=== PATIENT | male | born 1935 | race Caucasian/White ===

== ENCOUNTER → 2017-02-12 | Outpatient (CLI) | payer MEDICARE | END | disposition home or self-care (01) | LOC: RAD 16:55 | PROVIDERS: ATTEND Family Medicine | DX: M71.22 Synovial cyst of popliteal space [Baker], left knee (principal); M79.662 Pain in left lower leg; M79.89 Other specified soft tissue disorders ==

== ENCOUNTER → 2018-08-30 | Outpatient (CLI) | payer MEDICARE ==
[~2018-08-30] MED LIST: ACET500T71 PO; ENAL20TA PO; HYDR12.53 PO; TADA5TAB2 PO
== END | disposition home or self-care (01) ==
LOC: STAR 14:27
PROVIDERS: ATTEND Urology
DX: Z01.818 Encounter for other preprocedural examination (principal); N40.1 Benign prostatic hyperplasia with lower urinary tract symptoms
CPT/HCPCS: 93005

== ENCOUNTER 2019-09-05 07:21 | Inpatient (IN) | payer MEDICARE ==
[~2019-09-05] VITALS: Ht 177.8 cm; Wt 105.6 kg
[~2019-09-05 07:21] MED LIST changes: +ACET-1600 PO; +ACET500T64 PO; -ACET500T71 PO; +HYDR12.517 PO; -HYDR12.53 PO; +MV-M1TAB16 PO
[2019-09-05] MEDS ORDERED: LACTATED RINGERS 1,000 ML IV SCH (08:04)
[2019-09-05] MEDS ORDERED: FENTANYL PF 100 MCG/2ML ONE ×3 (08:32→13:33)
[2019-09-05] MEDS ORDERED: ACETAMINOPHEN 500 MG TABLET ONE (09:42)
[2019-09-05] MEDS ORDERED: ACETAMINOPHEN 500 MG TABLET PO ONE (10:00)
[2019-09-05] MEDS ORDERED: ROPIvacaine/PF 0.2%, 100ML 500 ML in BAG 1 EACH INJ ONE (10:00)
[2019-09-05] MEDS ORDERED: HYDROmorphone 2 MG/ML, 1ML IVPush PRN ×2 (11:30→17:30)
[2019-09-05] MEDS ORDERED: hydrALAzine 20 MG/ML, 1ML IV PRN (11:30)
[2019-09-05] MEDS ORDERED: ONDANSETRON 2MG/ML, 2ML IV PRN ×2 (11:30→17:30)
[2019-09-05] MEDS ORDERED: ONDANSETRON ODT 8 MG PO PRN (11:30)
[2019-09-05] MEDS ORDERED: LABETALOL 5MG/ML, 20ML IV PRN (11:30)
[2019-09-05] MEDS ORDERED: PROMETHAZINE 25 MG/ML, 1ML IV PRN (11:30)
[2019-09-05] MEDS ORDERED: OXYcodone 5 MG/5 ML ORAL.SOL UDC PO PRN (11:30)
[2019-09-05] MEDS ORDERED: PROMETHAZINE 25 MG SUPP PR PRN (11:30)
[2019-09-05] MEDS ORDERED: TRANEXAMIC ACID 100 MG/ML, 10ML ONE (12:52)
[2019-09-05] MEDS ORDERED: GLYCOPYRROLATE 0.2MG/1ML, 5ML ONE (12:54)
[2019-09-05] MEDS ORDERED: NEOSTIGMINE 1 MG/ML, 10ML ONE (12:54)
[2019-09-05] MEDS ORDERED: PROPOFOL 10 MG/ML, 20ML ONE (12:54)
[2019-09-05] MEDS ORDERED: ONDANSETRON 2MG/ML, 2ML ONE (12:54)
[2019-09-05] MEDS ORDERED: ROCURONIUM 10MG/ML,5ML ONE (12:54)
[2019-09-05] MEDS ORDERED: ROPIvacaine/PF 0.5%, 30 ML ONE (12:54)
[2019-09-05] MEDS ORDERED: ROPIvacaine/PF 0.2%, 20 ML ONE (12:54)
[2019-09-05] MEDS ORDERED: DEXAMETHASONE 4 MG/ML, 1ML ONE (12:54)
[2019-09-05] MEDS ORDERED: CEFAZOLIN 1,000 MG ONE (12:54)
[2019-09-05] MEDS ORDERED: SUCCINYLCHOLINE 20 MG/ML, 10ML ONE (12:54)
[2019-09-05] MEDS ORDERED: SUGAMMADEX 200 MG/2 ML IVPush ONE (12:57)
[2019-09-05] MEDS ORDERED: OXYcodone 5 MG/5 ML ORAL.SOL UDC ONE (13:33)
[2019-09-05] MEDS: FENTANYL PF 100 MCG/2ML IV PRN ×4 (13:37→14:35)
[2019-09-05] MEDS ORDERED: HYDROcodone/APAP 5/325 TABLET PO PRN (17:30)
[2019-09-05] MEDS ORDERED: PROMETHAZINE 25 MG/ML, 1ML IM PRN (17:30)
[2019-09-05 17:55] LABS: ALBUMIN 3.3 g/dL (3.4-5.0); ANION GAP 4 mmol/L (5-15); CALCIUM 8.2 mg/dL (8.5-10.1); CHLORIDE 104 mmol/L (98-107)
[2019-09-05 17:56] LABS: BASOPHILS % (AUTO) 0 % (0-1); EOSINOPHILS # (AUTO) 0.09 x10^3/uL (0-0.4); EOSINOPHILS % (AUTO) 1 % (1-7); LYMPHOCYTES % (AUTO) 7 % (22-44); MD NO; MEAN CORPUSCULAR HEMOGLOBIN 33.2 pg (27.5-34.5); MEAN CORPUSCULAR HGB CONC 33.1 g/dL (33.2-36.2); MEAN CORPUSCULAR VOLUME 100.3 fL (81-97); MEAN PLATELET VOLUME 9.9 fL (7.4-10.4); MONOCYTES # (AUTO) 0.06 x10^3/uL (0.2-0.8); MONOCYTES % (AUTO) 1 % (2-9); NEUTROPHILS # (AUTO) 6.87 x10^3/uL (1.8-6.8); NEUTROPHILS % (AUTO) 91 % (42-75); PLATELET COUNT 125 x10^3/uL (130-400); RED BLOOD COUNT 3.76 x10^6/uL (4.38-5.82)
[2019-09-05 17:59] LABS: ALANINE AMINOTRANSFERASE 25 U/L (12-78); ALKALINE PHOSPHATASE 46 U/L (45-117); BILIRUBIN,TOTAL 0.6 mg/dL (0.2-1.0); CREATININE 1.24 mg/dL (0.7-1.3); TOTAL PROTEIN 6.9 g/dL (6.4-8.2)
[2019-09-05] MEDS: CEFAZOLIN PMX 2GM/50ML 50 ML IVPB SCH (18:36)
[2019-09-05 20:13] VITALS: BP 107/55
[2019-09-05] MEDS: SODIUM CHLORIDE FLUSH 10ML SYR IVF SCH (20:56)
[2019-09-06 00:14] VITALS: BP 105/52
[2019-09-06] MEDS: CEFAZOLIN PMX 2GM/50ML 50 ML IVPB SCH (02:19)
[2019-09-06 07:45] VITALS: BP 115/68
[2019-09-06] MEDS ORDERED: ENOXAPARIN 40 MG/0.4 ML SQ SCH (09:00)
[2019-09-06] MEDS: SODIUM CHLORIDE FLUSH 10ML SYR IVF SCH (09:00)
== END 2019-09-06 13:05 | disposition home or self-care (01) | DRG 469 ==
LOC: ORIP 07:21 → 4NE 15:51 → DCLOUNGE 09-06 13:00
PROVIDERS: ADMIT Orthopaedic Surgery; ATTEND Orthopaedic Surgery
PROC: 0QUG07Z Supplement Right Tibia with Autologous Tissue Substitute, Open Approach (ICD-10-PCS; 2019-09-05)
PROC: 3E0T3BZ Introduction of Anesthetic Agent into Peripheral Nerves and Plexi, Percutaneous Approach (ICD-10-PCS; 2019-09-05)
PROC: 0L8N0ZZ Division of Right Lower Leg Tendon, Open Approach (ICD-10-PCS; 2019-09-05)
PROC: 0SRF0JZ Replacement of Right Ankle Joint with Synthetic Substitute, Open Approach (ICD-10-PCS; principal; 2019-09-05 10:00)
DX: M19.071 Primary osteoarthritis, right ankle and foot (principal); N18.9 Chronic kidney disease, unspecified; I12.9 Hypertensive chronic kidney disease with stage 1 through stage 4 chronic kidney disease, or unspecified chronic kidney disease; D69.6 Thrombocytopenia, unspecified; Z98.52 Vasectomy status; Z80.0 Family history of malignant neoplasm of digestive organs; Z86.718 Personal history of other venous thrombosis and embolism; Z79.899 Other long term (current) drug therapy
CPT/HCPCS: 36415; 76000; 80053; 85025; G0378; J0690; J1100; J1650; J2405; J2704; J2710; J2795; J3010; C1776; J0330; J7120